=== PATIENT | male | born 1970 | race African-American/Black ===

== ENCOUNTER 2016-08-29 09:48 | Emergency (ER) | payer MEDICARE, OTHER ==
--- NOTE | 2016-08-29 11:07 | RAD ---
History: Cough for 2 days. Comparison: None. Technique: 2 views Findings: The soft tissue and bony structures are unremarkable. The heart size is appropriate. No infiltrate, effusion or pneumothorax is observed. The hilar and mediastinal structures are normal. Impression: 1. A negative 2 view chest
== END 2016-08-29 11:38 | disposition home or self-care (01) ==
LOC: ED 09:48
DX: J98.01 Acute bronchospasm (principal); J06.9 Acute upper respiratory infection, unspecified; F17.210 Nicotine dependence, cigarettes, uncomplicated